=== PATIENT | male | born 1970 | race Caucasian/White ===

== ENCOUNTER 2021-03-20 20:07 | Emergency (ER) | payer OTHER ==
[~2021-03-20] VITALS: Ht 182.9 cm; Wt 90.7 kg
--- NOTE | ~2021-03-20 | EMS ---
[facility] [address] [place] [address] EMS Patient Care Report Name: JOSE RAY Room #: REG Anahi#: [id number] Admission: 03/20/21 Attend Phys: Discharge: Date of : 66 Report #: [id number] THIS REPORT FOR: //name// Report Transmitted: 03/20/2021 19:52 EMS Care Summary [place], [place]/[facility] Incident [id number] @ 03/20/2021 19:31 Incident Location [address] [place] [id number] Patient JOSE RAY Male, 50 Years 1970 Patient Address [address] [place] [address] Patient History Other,Hypertension (HTN),Hyperlipidemia,Anxiety, Patient Allergies No known allergies, Chief Complaint GI bleed Disposition Transported No Lights/[place] Reason Hemorrhage/Laceration Transported To [facility] Narrative pt has 3-4 bouts of diarrhea in the past hr. he finally had his look at the BM and she saw that there was gentry red blood in the stool. pt had not known b/c he is color blind. pt reported to have had syncopal episode DRONE PILOT. pt had colonoscopy a week ago and had 10 polyps removed at that time, one had to be clamped off. when we arrive, pt is a&o, seated on toilet. he has no c/o pain, just states he feels "hot". pt req sami LOW, closed, [facility]. pt to cot, [facility] [address] [place] [address] EMS Patient Care Report Name: JOSE RAY Room #: REG [facility]..#: [id number] Admission: 03/20/21 Attend Phys: Discharge: Date of : 66 Report #: [id number] tx as listed in flow chart. transport w/o change. Initial Vitals @19:45P: 86,R: 18,BP: 120/80,Pain: 0/10,GCS: 15,SpO2: 96,Revised Trauma: 12, @20:01P: 86,R: 18,BP: 115/64,SpO2: 99, Assessments @19:46MENTAL:No Abnormalities,SKIN:Diaphoresis,HEENT:Head/Face: No Abnormalities,LUNG SOUNDS:General: Diarrhea,ABDOMEN:General: Diarrhea,PELVIS//GI:EXTREMITIES:PULSE:Radial: 2+ Normal,NEURO:@20:03MENTAL:No Abnormalities,SKIN:No Abnormalities,HEENT:LUNG SOUNDS:General: No Abnormalities,ABDOMEN:General: No Abnormalities,PELVIS//GI:EXTREMITIES:PULSE:NEURO:No Abnormalities, Impression Diarrhea Procedures @19:40ALS AssessmentResponse: UnchangedSucceeded@19:43StretcherResponse: Unchanged@19:463-Lead ECGResponse: Unchanged@19:48Saline Lock 10cc (18 ga) Site: Antecubital-LeftResponse: UnchangedSucceeded Timeline 19:29,Call Received 19:29,Dispatch Notified 19:31,Dispatched 19:35,En Route 19:37,On Scene 19:40,At Patient 19:40,ALS Assessment,Response: UnchangedSucceeded, 19:43,Stretcher,Response: Unchanged 19:45,BP: 120/80 M,PULSE: 86,RR: 18 R,SPO2: 96 Ox,ETCO2: ,BG: ,PAIN: 0,GCS: 15, 19:46,3-Lead ECG,Response: Unchanged 19:48,Saline Lock 10cc 18 ga Site: Antecubital-Left,Response: UnchangedSucceeded, 19:50,Depart Scene 20:01,BP: 115/64 M,PULSE: 86,RR: 18 R,SPO2: 99 Ox,ETCO2: ,BG: ,PAIN: ,GCS: , 20:11,At Destination 20:26,Call Closed Disclaimer v1.1 Copyright 2020 [employer] This EMS Care Summary contains data elements from the applicable legal record (which may be displayed differently). It is designed to provide pertinent information for the following purposes: continuity of care, clinical quality, and state data reporting. The complete legal record is available to ED staff [address] [address] EMS Patient Care Report Name: ANJELJOSE DOHERTY Room #: REG Anahi#: [id number] Admission: 03/20/21 Attend Phys: Discharge: Date of : 66 Report #: [id number] and administrators of the receiving hospital in [facility]'s Patient Tracker. All data is provided "as is."
[2021-03-20 20:43] LABS: ABSOLUTE NEUTROPHILS 5.8 thou/uL (1.4-8.2); BASOPHILS 0.8 % (0.0-2.0); HEMATOCRIT 42.9 % (42.0-52.0); MCH 28.8 pg (26.0-34.0); MCHC 32.7 g/dL (28.0-37.0); MCV 88.1 fL (80.0-100.0); MONOCYTES 4.3 % (1.0-8.0); PLATELET COUNT 276 thou/uL (150-400); POLYS 51.9 % (36.0-66.0); RBC 4.87 mil/uL (4.50-6.00); RDW 15.2 % (10.5-14.5); WBC 11.2 thou/uL (4.0-11.0)
[2021-03-20 20:55] LABS: CALCIUM 8.6 mg/dL (8.5-10.1); CREATININE 1.3 mg/dL (0.7-1.3); POTASSIUM 3.4 mmol/L (3.5-5.1)
[2021-03-20] MEDS ORDERED: EZETIMIBE10 MG PO (20:59)
[2021-03-20] MEDS ORDERED: VITAMIN D31250 MC1 PO (20:59)
[2021-03-20 21:00] LABS: ALBUMIN 3.2 g/dL (3.4-5.0); TOTAL BILIRUBIN 0.3 mg/dL (0.2-1.0); TOTAL PROTEIN 6.4 g/dL (6.4-8.2)
[2021-03-20] MEDS ORDERED: LEXAPRO 10 MG T10 M2 PO (21:00)
[2021-03-20] MEDS ORDERED: PROPRANOLOL 1010 M1 PO (21:00)
[2021-03-20] MEDS ORDERED: ROSUVASTATIN CA20 MG PO (21:00)
[2021-03-20 22:15] VITALS: BP 112/63
--- NOTE | 2021-03-22 07:31 | EKG ---
[place] [address] [facility] [employer] [place] [address] ELECTROCARDIOGRAM REPORT Name: JOSE RAY [id number] Admission: 03/20/21 Attend Phys: Discharge: 03/20/21 Date of : 66 Report #: [id number] [facility] ED Test Date: 2021-03-20 Test Time: 20:34:50 Pat Name: JOSE RAY Department: Room: Gender: Manager Custom: RONALD DAMIAN : 1970 Requested By: Tiana Murry Order Number: [id number] MD: Adrian Colmenares Measurements Intervals Aneta Rate: 82 P: 32 ID: [id number] QRS: 44 QRSD: 107 T: 45 QT: 398 QTc: 465 Interpretive Statements Sinus rhythm Probable left atrial enlargement Abnormal R-wave progression, late transition Abnormal inferior Q waves No previous ECG available for comparison Electronically Signed On 03-22-2021 7:31:18 CDT by Adrian Colmenares [email or web address] <ELECTRONICALLY SIGNED> By: Adrian Colmenares MD, [facility] 03/22/21 0731 [id number] Adrian Colmenares MD, FACC /EPI
== END 2021-03-20 22:15 | disposition home or self-care (01) ==
LOC: ER 20:07
PROVIDERS: Emergency Medicine
DX: K92.2 Gastrointestinal hemorrhage, unspecified (principal); R55 Syncope and collapse; Z79.899 Other long term (current) drug therapy